=== PATIENT | female | born 1995 | race Caucasian/White ===

== ENCOUNTER 2020-01-23 20:11 | Emergency (ER) | payer MEDICAID, SELFPAY ==
[2020-01-23 20:17] VITALS: BP 139/98; PULSE 110; RESP 18; TEMP 37.3; O2SAT 95; BMI 40.1
--- NOTE | 2020-01-23 20:29 | XRR_ITS ---
PROCEDURE INFORMATION: Exam: XR Chest, 1 View Exam date and time: 01/23/2020 9:20 PM Age: 24 years old Clinical indication: Cough and fever and shortness of breath; Smoker's cough; Additional info: Cough, fever, dyspnea x 1 week TECHNIQUE: Imaging protocol: XR of the chest Views: Frontal portable upright view of the chest. COMPARISON: CR Chest 2 views* [id number] 10/24/2016 8:04 PM FINDINGS: Lungs: The lungs are clear bilaterally. The pulmonary vasculature is normal. Pleural space: No pleural effusion. No pneumothorax. Heart/Mediastinum: The heart is normal in size and contour. Mediastinum: Stable. Bones/joints: Stable. XR/XR chest 1V portable [id number] IMPRESSION: No acute cardiopulmonary abnormality identified.
--- NOTE | 2020-01-23 20:42 | ED_ITS ---
HPI - SOB/Dyspnea General: Chief Complaint: Fever Stated Complaint: covid symptoms Time Seen by Provider: 01/23/20 20:19 History of Present Illness: HPI Narrative: This patient is a 24-year-old female who presents with shortness of breath and fever. Her symptoms have been going on for approximately a week. Today she felt very short of breath and her inhalers that she takes for asthma were not helping her symptoms. She has had low-grade fevers between 99 and 100.2. She has had no known exposures to COVID. She is a ajlc-jy-wivk mom and said she has any been going out to the store. Her works at the [employer] and he goes to work and to the store. She has a 6-month-old at home who has similar symptoms to her self. She also has 2 other children. She has had some diarrhea. She has lost her sense of taste and smell but also notes that she has a lot of sinus congestion. MD elicited complaint: shortness of breath and cough Pertinent past history: asthma Onset (ago): week(s) (1) Timing: constant and progressively worsening Severity: moderate Exacerbating factors: nothing Relieving factors: nothing Associated symptoms: Reports chest congestion, cough, diaphoresis and fever(s); Deny abdominal pain, chest pain, nausea or vomiting Treatment prior to arrival: bronchodilator Review of Systems General: Reports: 10 or more systems reviewed and unremarkable except in HPI and below Const: Reports: fever(s) and diaphoresis Eyes: Denies: change in vision ENMT: Denies: odynophagia Card: Denies: chest pain or swelling of feet/ankles Resp: Reports: chest congestion GI: Reports: diarrhea; Denies: abdominal pain, nausea or vomiting : Denies: flank pain or difficulty voiding Musc: Denies: neck pain or back pain Skin/Breast: Denies: rash Neuro: Denies: headache(s), numbness in extremities or weakness in extremities Juan Luis/Lymph: Denies: easy bruising or easy bleeding [facility] ED PFSH: Medical History (Updated 01/23/20 @ 21:53 by Chapis Boone MD) Asthma Female Reproductive History: Date of last menstrual period: 01/23/20 Physical Exam Const: COMMON NORMALS: no acute distress, patient oriented x3, no limitations and alert GENERAL APPEARANCE: cooperative and comfortable NUTRITIONAL APPEARANCE: obese HENMT: HEAD & SCALP: normal to inspection FACE & SINUS: normal facial exam NOSE: Other nasal findings present (Nasal congestion) Eye: GENERAL EYE: appearance normal, both eyes and all related structures Neck/C-Spine: COMMON NORMALS: supple, no meningeal signs and no JVD Chest: COMMONS NORMALS: normal inspection of the chest Resp: COMMON NORMALS: normal respiratory effort, No use of accessory muscles and clear to auscultation bilaterally AUSCULTATION: clear to auscultation bilaterally, no rales, no rhonchi and no wheezes Cardio: COMMON NORMALS: no JVD, regular rate, regular rhythm and No murmurs present (Cardio) RATE: regular rate RHYTHM: regular rhythm GI: COMMON NORMALS: Normal to inspection, nondistended, normoactive bowel sounds present, Soft to palpation and non-tender INSPECTION: Yes normal to inspection AUSCULTATION: Yes normoactive bowel sounds PALPATION: Yes Soft to palpation Back/Pelvis: COMMON NORMALS: thoracic and lumbar spine normal to inspection Extremity: COMMON NORMALS: normal to inspection Neuro: COMMON NORMALS: patient oriented x3, moves all extremities, no focal motor deficits and no sensory deficits noted SENSORIUM/ORIENTATION: Yes alert MENINGEAL SIGNS: Yes no meningeal signs Psych: COMMON NORMALS: mental status grossly normal, cooperative and normal affect Skin: COMMON NORMALS: no rashes or lesions noted and turgor normal GENERAL SKIN EXAM: no rashes or lesions noted and turgor normal Course ED course: On repeat vital signs patient's heart rate was 92. Pulse ox on room air was 98%. Temperature is 98.6. She is breathing comfortably. There is no wheezing on exam. Chest x-ray is unremarkable. We discussed return precautions, follow-up, self-isolation. She will use [id number] medi cations for her sinus and nasal congestion and other viral symptoms. We discussed monitoring her oxygen with a home pulse ox. Vital Signs: Vital signs: Vital Signs Temperature 98.6 F 01/23/20 21:45 Pulse Rate 92 01/23/20 21:45 Respiratory Rate 16 01/23/20 21:45 Blood Pressure 139/98 01/23/20 21:45 Pulse Oximetry 98 01/23/20 21:45 MDM - SOB/Dyspnea MDM Narrative: Medical decision making narrative: Symptoms could be related to COVID. Shortness of breath, cough, fever. She has had loss of taste and smell but also has sinus congestion. No wheezing on exam. Doubt asthma exacerbation. Outpatient COVID testing, chest x-ray. Discharge Plan Discharge Patient Disposition: Home Clinical Impression: Viral infection, COVID-19 virus test result unknown Condition: Stable Discharge Orders: Discharge Order (Routine); Ordered 01/23/20 Ordered By: Chapis Boone Referrals: Naren Huertas DO [Primary Care Provider] - Discharge Diet: Usual diet Discharge Activity: Resume usual activity Patient Instructions: Upper Respiratory Infection (ED) Activity Restrictions/Additional Instructions: Self quarantine until the results of your COVID test are available. Return to the emergency department if increasing shortness of breath or any other new or concerning symptoms develop. Use [id number] cough and cold medicines for your symptoms. You may also use ibuprofen and Tylenol for symptoms. You will be contacted with the test results when they become available in the next few days. Coding Level of Care Code ED Manager French for Ashkan Ivan Exam Comprehensive
[2020-01-23 21:45] VITALS: BP 139/98; PULSE 92; RESP 16; TEMP 37; O2SAT 98
[2020-01-25 19:31] LABS: Quest SARS-CoV-2 RNA NOT DETECTED (NOT DETECTED)
== END 2020-01-23 22:04 | disposition home or self-care (01) ==
PROVIDERS: Emergency Provider Emergency Medicine; PCP Family Medicine
DX: B34.9 Viral infection, unspecified (principal)
CPT/HCPCS: 12345; 71045; 87635; 99281; 99283

== ENCOUNTER 2021-02-18 15:55 | Emergency (ER) | payer MEDICAID, SELFPAY ==
[2021-02-18 16:16] VITALS: BP 131/90; PULSE 101; RESP 16; TEMP 36.8; O2SAT 98
--- NOTE | 2021-02-18 17:32 | ED_ITS ---
HPI - Back Pain/Injury General: Chief Complaint: Back Pain/Injury Stated Complaint: LOWER BACK AND SPINAL PAIN Time Seen by Provider: 02/18/21 17:32 History of Present Illness: HPI Narrative: 25-year-old female comes in today with complaints of low back pain. Patient appears well. Patient appears no acute distress. Patient reports yesterday patient was lifting a child over a gate and he pulled away from her causing her to aggravate her lower back. Patie nt does report a history of low back pain and discomfort. Patient has been diagnosed with a bulging disc in the lower back. Review of Systems General: Reports: 10 or more systems reviewed and unremarkable except in HPI and below Musc: Reports: back pain [facility] ED PFSH: Medical History (Updated 02/18/21 @ 17:48 by CAPRI Dailey) Asthma Female Reproductive History: Date of last menstrual period: 01/07/21 Physical Exam 2 Const: COMMON NORMALS: no acute distress and patient oriented x3 GENERAL APPEARANCE: cooperative HENMT: COMMON NORMALS: normocephalic and Normal external nose present HEAD & SCALP: normal to inspection and normocephalic NOSE: Normal external nose present MOUTH: Normal oral and palatal mucosa present Eye: GENERAL EYE: appearance normal, both eyes and all related structures Neck/C-Spine: COMMON NORMALS: full ROM Chest: COMMONS NORMALS: normal inspection of the chest Resp: COMMON NORMALS: normal respiratory effort EFFORT & INSPECTION: Yes able to speak in complete sentences Cardio: COMMON NORMALS: regular rate and regular rhythm RATE: regular rate RHYTHM: regular rhythm GI: COMMON NORMALS: non-tender : COMMON NORMALS: Yes no CVA tenderness BLADDER/KIDNEY EXAM: Yes no CVA tenderness Back/Pelvis: COMMON NORMALS: no CVA tenderness THORACIC SPINE/UPPER BACK: No thoracic spinal tenderness LUMBAR SPINE/LOWER BACK: Yes lumbar spinal tenderness Lumbar spinal tenderness location: L4 and L5 and Yes paraspinal muscle tenderness Lumbar paraspinal muscle tenderness: left left lumbar paraspinal muscle tenderness: L3, L4 and L5 Extremity: COMMON NORMALS: normal to inspection Neuro: COMMON NORMALS: patient oriented x3 and moves all extremities Psych: COMMON NORMALS: mental status grossly normal and cooperative Skin: COMMON NORMALS: no rashes or lesions noted GENERAL SKIN EXAM: no rashes or lesions noted Course Vital Signs: Vital signs: Vital Signs Temperature 98.2 F 02/18/21 16:16 Pulse Rate 101 H 02/18/21 16:16 Respiratory Rate 16 02/18/21 16:16 Blood Pressure 131/90 02/18/21 16:16 Pulse Oximetry 98 02/18/21 16:16 MDM - Back Pain/Injury MDM Narrative: Medical decision making narrative: 25-year-old female comes in for low back pain. On exam patient has muscle tenderness to the left lower back paraspinous muscles. Patient also has some tenderness in the L4-L5 area of the lumbar spine. Patient denies any problems with urination or bowel movements. Patient vital signs were normal. Differential diagnosis includes but not limited to intervertebral disc disease, lumbar strain, facet arthropathy. No sign of cauda equina syndrome was noted. Reviewed exam with patient recommended treatment for lumbar strain. Patient reported understanding and agreed to plan with need for follow-up with primary care. Discharge Plan Discharge Patient Disposition: Home Clinical Impression: Strain of lumbar region Qualifiers: Encounter type: initial encounter Qualified Code(s): S39.012A - Strain of m uscle, fascia and tendon of lower back, initial encounter Condition: Stable Prescriptions: New hydrocodone-acetaminophen 5-325 mg tablet 1 tab PO Q6H PRN (Reason: pain (scale score 7-10)) Qty: 6 RF: 0 Discharge Orders: Discharge ED (Routine); Ordered 02/18/21 Ordered By: Wolfgang Mc Referrals: Naren Huertas DO [Primary Care Provider] - Discharge Diet: Usual diet Discharge Activity: Increase activity as tolerated Patient Instructions: Low Back Strain (ED), Opioid Safety Activity Restrictions/Additional Instructions: Activity as tolerated. Use acetaminophen and ibuprofen for control of pain. Use ice and heat for further pain control. Drink plenty of water. Use hydrocodone for severe pain or breakthrough pain. Try to maintain activity as much as possible. Leisurely walking will help with the pain and discomfort. Follow-up with primary care for further instruction. Return to the ER for new concerns. Coding Level of Care Code ED Partnership Marketing Manager for Ashkan Ivan
[2021-02-18 18:02] VITALS: BP 115/83; PULSE 88; RESP 18; O2SAT 95
== END 2021-02-18 18:12 | disposition home or self-care (01) ==
PROVIDERS: Emergency Provider Nurse Practitioner Family; PCP Family Medicine
DX: S39.012A Strain of muscle, fascia and tendon of lower back, initial encounter (principal); X50.0XXA Overexertion from strenuous movement or load, initial encounter
CPT/HCPCS: 99282

== ENCOUNTER 2021-06-15 12:07 | Emergency (ER) | payer MEDICAID, SELFPAY ==
[2021-06-15 12:22] VITALS: BP 166/105; PULSE 90; RESP 16; TEMP 36.7; O2SAT 98
--- NOTE | 2021-06-15 12:55 | W.ED.ABDPA2 ---
HPI - Abdominal Pain General: Chief Complaint: Abdominal Pain Stated Complaint: Abd pains, bloodclotts in diarrhea Time Seen by Provider: 06/15/21 12:46 Source: patient Mode of arrival: ambulatory Limitations: no limitations History of Present Illness: HPI narrative: Abdominal cramping and bloody diarrhea this morning. Past surgical history includes C-sections x2, appendectomy, cholecystectomy. Possible history includes anxiety and chronic low back pain. Patient is on Lexapro, meloxicam, Flexeril. Patient was started on control pills 1 week ago. She is allergic to cephalexin. MD elicited complaint: abdominal pain Pertinent past history: gastrointestinal bleeding Onset (ago): day(s) (1) Pain Consistency: intermittent Location: Diffuse Severity: mild Quality: cramping Radiation: none Migration to: no migration Relieving factors: nothing Context: other (Patient denies any food poisoning, contaminated water or sick contacts.) Associated Symptoms: Reports GI cramping, diarrhea and hematochezia; Denies chills, dysuria, fever(s), hematemesis, melena, nausea, poor appetite, syncope and vomiting Treatments prior to arrival: NSAIDs Related Data: Date of Last Menstrual Period: 01/07/21 Patient : No Review of Systems Const: Denies: fever(s) or chills Eyes: Denies: change in vision ENMT: Denies: throat pain Card: Denies: syncope Resp: Denies: dyspnea or wheezing GI: Reports: diarrhea, GI cramping and hematochezia; Denies: nausea, vomiting, hematemesis or melena : Denies: dysuria Musc: Denies: neck pain or back pain Skin/Breast: Denies: rash or pruritus Neuro: Denies: headache(s) or numbness in extremities Psych: Denies: anxiety Juan Luis/Lymph: Denies: enlarged lymph nodes PFSH ED PFSH: Medical History Asthma Female Reproductive History: Date of last menstrual period: 01/07/21 Physical Exam Const: COMMON NORMALS: no acute distress, patient oriented x3, no limitations and well nourished EXAM LIMITATIONS: no altered mental status GENERAL APPEARANCE: cooperative NUTRITIONAL APPEARANCE: obese HENMT: COMMON NORMALS: normocephalic and atraumatic HEAD & SCALP: normocephalic and atraumatic FACE & SINUS: normal facial exam Eye: COMMON NORMALS: EOMs intact bilaterally, conjunctivae normal and no scleral icterus CONJUNCTIVA: Yes conjunctivae normal Neck/C-Spine: COMMON NORMALS: full ROM, no lymphadenopathy, supple and no meningeal signs GENERAL: Yes normal visual inspection Lymph: LYMPHATIC: no lymphadenopathy noted Chest: COMMONS NORMALS: normal inspection of the chest and normal palpation of entire chest wall CHEST: No Ecchymosis present and No rash Resp: COMMON NORMALS: normal respiratory effort, No retractions and clear to auscultation bilaterally EFFORT & INSPECTION: No respiratory distress AUSCULTATION: clear to auscultation bilaterally Cardio: COMMON NORMALS: regular rate, regular rhythm and Peripheral pulses 2+ throughout JUGULAR VENOUS DISTENTION: no JVD RATE: regular rate RHYTHM: regular rhythm PERIPHERAL PULSES: Peripheral pulses 2+ throughout GI: COMMON NORMALS: Normal to inspection, nondistended, normoactive bowel sounds present, Soft to palpation and No hepatosplenomegaly present AUSCULTATION: Yes normoactive bowel sounds PALPATION: Yes Soft to palpation, Yes Tenderness to palpation present (GI) (Mild generalized abdominal pain) and Yes No hepatosplenomegaly present OTHER: No guarding or rebound. Patient denies history of hemorrhoids. : COMMON NORMALS: Yes no CVA tenderness BLADDER/KIDNEY EXAM: Yes no CVA tenderness Back/Pelvis: COMMON NORMALS: no CVA tenderness Extremity: COMMON NORMALS: normal to inspection, full ROM and capillary refill normal Neuro: COMMON NORMALS: patient oriented x3, CN's II-XII intact bilaterally, no focal motor deficits and no sensory deficits noted MENINGEAL SIGNS: Yes no meningeal signs Psych: COMMON NORMALS: mental status grossly normal and Normal thought process present THOUGHT PROCESS: Normal thought process present Skin: COMMON NORMALS: no rashes or lesions noted and no wounds GENERAL SKIN EXAM: no rashes or lesions noted Course Vital Signs: Vital signs: Vital Signs Temperature 98.1 F 06/15/21 12:22 Pulse Rate 83 06/15/21 14:31 Respiratory Rate 14 06/15/21 14:31 Blood Pressure 147/97 06/15/21 13:01 Pulse Oximetry 98 06/15/21 14:31 MDM - Abdominal Pain MDM Narrative: Medical decision making narrative: 1432: Patient okay with proceeding with CT scan of the abdomen. 1450: Patient changed her mind and declined CT scan of the abdomen. She wants to go home at this point. [facility]. I did encourage patient follow-up with her primary care doctor for endoscopy to look at her colon. Differential Diagnosis: Differential diagnosis abdominal pain: Likely abdominal pain (Colitis) Medical Records: Attestation: I reviewed the patient's medical records. Lab Data: Labs: Lab Results 06/15/21 06/15/21 06/15/21 13:05 13:05 13:42 WBC 9.2 10^3/uL 10^3/ uL (4.0-10.0) RBC 5.52 10^6/uL H 10 ^6/uL (4.1-5.3) Hgb 15.0 g/dL g/dL (11.5-15.3) Hct 46.5 % % (37.0-47.0) MCV 84.2 fl fl (81-99) MCH 27.2 pg L pg (28.0-34.0) MCHC 32.3 g/dL g/dL (30.0-36.0) RDW 14.0 % % (12.1-15.1) Plt Count 341 10^3/cmm 10^3 /cmm (130-400) MPV 10.1 fL fL (7.4-10.4) Neut % (Auto) 62.4 % % Lymph % (Auto) 27.8 % % Preble % (Auto) 6.0 % % Eos % (Auto) 2.7 % % Baso % (Auto) 0.9 % % Neut # (Auto) 5.71 10^3/uL 10^3 /uL (1.8-7.7) Lymph # (Auto) 2.6 10^3/uL 10^3/ uL (0.8-4.8) Preble # (Auto) 0.6 10^3/uL 10^3/ uL (0.2-0.9) Eos # (Auto) 0.3 10^3/uL 10^3/ uL (0.0-0.8) Baso # (Auto) 0.1 10^3/uL 10^3/ uL (0.0-0.1) Nucleated RBC % (a uto) 0 % % Nucleated RBCs # 0.0 /100WBC /100W BC Sodium 139 mmol/L mmol/L (136-145) Potassium 4.3 mmol/L mmol/L (3.5-5.1) Chloride 103 mmol/L mmol/L (98-107) Carbon Dioxide 25 mmol/L mmol/L (22-29) Anion Gap 15.3 (5-19) BUN 7 mg/dL mg/dL (6-20) Creatinine 0.7 mg/dL mg/dL (0.5-0.9) GFR Calculation 100.4 mL/min mL/m in (90-130) Glucose 97 mg/dL mg/dL (65-115) Calculated Osmolal ity 286 mOsm/kg mOsm/ kg (285-295) Calcium 9.0 mg/dL mg/dL (8.5-10.5) Total Bilirubin 0.2 mg/dL mg/dL (0.15-1.2) AST 24 U/L U/L (0-32) ALT 47 U/L H U/L (0-33) Alkaline Phosphata se 129 IU/L H IU/L (35-105) Total Protein 6.9 g/dL g/dL (6.6-8.7) Albumin 4.0 g/dL g/dL (3.5-5.2) Globulin 2.9 g/dL g/dL (1.3-4.6) Urine Color Urine Appearance Urine pH Ur Specific Gravit y Urine Protein Urine Glucose (UA) Urine Ketones Urine Blood Urine Nitrate Urine Bilirubin Urine Urobilinogen Ur Leukocyte Michelle ase Urine RBC Urine WBC Ur Squamous Epith Cells Amorphous Sediment Urine Bacteria Urine HCG, Qual Negative (Negative) 06/15/21 13:42 WBC RBC Hgb Hct MCV MCH MCHC RDW Plt Count MPV Neut % (Auto) Lymph % (Auto) Preble % (Auto) Eos % (Auto) Baso % (Auto) Neut # (Auto) Lymph # (Auto) Preble # (Auto) Eos # (Auto) Baso # (Auto) Nucleated RBC % (a uto) Nucleated RBCs # Sodium Potassium Chloride Carbon Dioxide Anion Gap BUN Creatinine GFR Calculation Glucose Calculated Osmolal ity Calcium Total Bilirubin AST ALT Alkaline Phosphata se Total Protein Albumin Globulin Urine Color Yellow (Yellow) Urine Appearance Hazy A (CLEAR) Urine pH 7 (5-7) Ur Specific Gravit y 1.015 (1.005-1.030) Urine Protein Neg (Negative) Urine Glucose (UA) Norm (Normal) Urine Ketones Negative (Negative) Urine Blood 3+ H (Negative) Urine Nitrate Negative (Negative) Urine Bilirubin Neg (Negative) Urine Urobilinogen Norm mg/dL mg/dL (Negative) Ur Leukocyte Mcihelle ase Negative (Negative) Urine RBC >100 /hpf H /hpf (0-2) Urine WBC 0-4 /hpf H /hpf (0-5) Ur Squamous Epith Cells 5-10 /hpf H /hpf (0-5) Amorphous Sediment Not Reportable Urine Bacteria 1+ /hpf H /hpf (NONE) Urine HCG, Qual stool for occult blood negative. [facility] [address] [place] [id number], [employer] C[employer] NAME: Abundio Nassar LOC: ER U #: [id number] AGE/SX: 25/F ROOM: RE06/15/[address]: Robbi Ríos MD : 1995 BED: DIS: FAX #: STATUS: REG ER TLOC: Spec #: [id number] Sanjuana: 06/15/21 Status: RES Req #: [id number] Recd: 06/15/[address]: Robbi Ríos MD Src: Stool SpDesc: Ordered: Lactoferrin, E. Bact Pnl, E. Parasite, C.DIFF PCR, IFOB Procedure Result Verified Site Lactoferrin Final 06/15/21 Lactoferrin Negative: No fecal lactoferrin detected. Enteric Bacterial Panel by PCR PENDING Enteric Parasite Panel by PCR PENDING Clostridioides Difficile PCR PENDING Immunochemical Fecal OCB Final 06/15/21 IFOB Results: Negative for Occult Blood [facility] [address] [place] [id number], [employer] NAME: Abundio Nassar LOC: ER U #: [id number] AGE/SX: 25/F ROOM: RE06/15/[address]: Robbi Ríos MD : 1995 BED: DIS: FAX #: STATUS: REG ER TLOC: Spec #: [id number] Sanjuana: 06/15/21 Status: RES Req #: [id number] Recd: 06/15/[address]: Robbi Ríos MD Src: Stool SpDesc: Ordered: Lactoferrin, E. Bact Pnl, E. Parasite, C.DIFF PCR, IFOB Procedure Result Verified Site Lactoferrin Final 06/15/21 Lactoferrin Negative: No fecal lactoferrin detected. Enteric Bacterial Panel by PCR PENDING Enteric Parasite Panel by PCR PENDING Clostridioides Difficile PCR PENDING Immunochemical Fecal OCB Final 06/15/21 IFOB Results: Negative for Occult Blood Discharge Plan Discharge Prescriptions: No Action hydrocodone-acetaminophen 5-325 mg tablet 1 tab PO Q6H PRN (Reason: pain (scale score 7-10)) Qty: 6 RF: 0 Coding Level of Care Code ED Scorer Helper for Chg Fwd Exam Comprehensive
[2021-06-15 13:01] VITALS: BP 147/97; PULSE 90; RESP 16; O2SAT 98
[2021-06-15 13:11] LABS: Basophils # 0.1 10^3/uL (0.0-0.1); Basophils % 0.9 %; Eosinophils # 0.3 10^3/uL (0.0-0.8); Eosinophils % 2.7 %; Hematocrit 46.5 % (37.0-47.0); Lymphocytes # 2.6 10^3/uL (0.8-4.8); Lymphocytes % 27.8 %; Mean Corpuscular HGB Conc 32.3 g/dL (30.0-36.0); Mean Corpuscular Hemoglobin 27.2 pg (28.0-34.0); Mean Corpuscular Volume 84.2 fl (81-99); Mean Platelet Volume 10.1 fL (7.4-10.4); Monocytes # 0.6 10^3/uL (0.2-0.9); Neutrophils # 5.71 10^3/uL (1.8-7.7); Neutrophils % 62.4 %; Nucleated Red Blood Cells % 0 %; Platelet Count 341 10^3/cmm (130-400); Red Blood Count 5.52 10^6/uL (4.1-5.3); White Blood Count 9.2 10^3/uL (4.0-10.0)
[2021-06-15 13:27] LABS: Alanine Aminotransferase 47 U/L (0-33); Alkaline Phosphatase 129 IU/L (35-105); Anion Gap 15.3 (5-19); Aspartate Amino Transferase 24 U/L (0-32); Blood Urea Nitrogen 7 mg/dL (6-20); Carbon Dioxide 25 mmol/L (22-29); Chloride 103 mmol/L (98-107); Globulin 2.9 g/dL (1.3-4.6); Glomerular Filtration Rate 100.4 mL/min (90-130); Glucose 97 mg/dL (65-115); Osmolality Calculated 286 mOsm/kg (285-295); Potassium 4.3 mmol/L (3.5-5.1); Sodium 139 mmol/L (136-145); Total Bilirubin 0.2 mg/dL (0.15-1.2); Total Protein 6.9 g/dL (6.6-8.7)
[2021-06-15 14:09] LABS: Specific Gravity, Urine 1.015 (1.005-1.030); Urine Appearance Hazy (CLEAR); Urine Color Yellow (Yellow); pH Urine 7 (5-7)
[2021-06-15 14:10] LABS: Blood Urine 3+ (Negative); Glucose Urine UA Norm (Normal); Ketones Urine Negative (Negative); Protein Urine Neg (Negative)
[2021-06-15 14:11] LABS: Add Urine Culture? Yes; Bacteria Urine 1+ /hpf; Bilirubin Urine Neg (Negative); Leukocyte Esterase Urine Negative (Negative); Nitrate Urine Negative (Negative); RBC Urine >100 /hpf (0-2); Urobilinogen Urine Norm (Negative); WBC Urine 0-4 /hpf (0-5)
[2021-06-15 14:31] VITALS: PULSE 83; RESP 14; O2SAT 98
[2021-06-15 15:06] VITALS: PULSE 85; O2SAT 96
[2021-06-15 15:19] VITALS: BP 124/84; PULSE 89; RESP 14; O2SAT 98
== END 2021-06-15 15:21 | disposition home or self-care (01) ==
PROVIDERS: Nurse Practitioner Family; Emergency Provider Family Medicine; PCP Family Medicine
DX: R10.9 Unspecified abdominal pain (principal); R19.7 Diarrhea, unspecified
CPT/HCPCS: 80053; 81001; 81025; 82274; 83630; 85025; 87086; 87493; 87506; 99283

== ENCOUNTER 2021-09-11 14:52 | Emergency (ER) | payer MEDICAID, SELFPAY ==
[2021-09-11 15:07] VITALS: BP 137/97; PULSE 84; RESP 18; TEMP 36.6; O2SAT 98; BMI 39.4
--- NOTE | 2021-09-11 15:20 | PC.NURSE ---
DR. ARIZA REVIEWED THE EKG THAT WAS TAKEN IN TRIAGE AT 1513.
--- NOTE | 2021-09-11 15:42 | XR_ITS ---
WS: [id number] Portable AP upright chest, 09/11/2021 Clinical Data: sob Comparison: Portable chest, 01/23/2020. Findings: No nodules, masses or effusions are seen. The heart is normal. The pulmonary vascularity is not increased. No pneumonia or pneumothorax is seen. XR/XR chest 1V portable [id number] Impression: Negative chest.
--- NOTE | 2021-09-11 17:07 | W.ED.ASTHMA ---
HPI - Asthma General: Chief Complaint: Asthma Stated Complaint: asthma Time Seen by Provider: 09/11/21 17:03 Source: patient Mode of arrival: ambulatory Limitations: no limitations History of Present Illness: 26-year-old female comes in complaining of wheezing and congestion. She has a history of asthma she is exposed to some pet allergens and at home she was in seem to precipitate it. She is not had any fever sweats or chills she does have an albuterol inhaler she uses as needed she used it twice today. She feels a little bit better now than she did a few days ago. complaint: asthma attack and shortness of breath Onset (ago): minute(s) Severity: severe Associated symptoms: Reports non-productive cough; Deny chest pain, fever(s), hemoptysis, leg edema, productive cough or syncope Asthma History: childhood onset Treatments Prior to Arrival: inhaled bronchodilator Related Data: Current Asthma Therapy: inhaled bronchodilator Review of Systems Const: Denies: fever(s) ENMT: Denies: throat pain, ear or mastoid pain, nasal discharge or nasal congestion Card: Denies: chest pain or syncope Resp: Reports: dyspnea, non-productive cough and wheezing; Denies: productive cough or hemoptysis GI: Denies: abdominal pain, nausea, vomiting, hematemesis, coffee ground emesis, diarrhea, constipation, bloating, hematochezia or melena : Denies: flank pain, difficulty voiding, dysuria, urinary frequency or urinary urgency Skin/Breast: Denies: rash or pruritus PFSH ED PFSH: Medical History Asthma Social History (Updated 09/12/21 @ 09:38 by Speedy Handley DO) Smoking and tobacco status: never smoked Female Reproductive History: Date of last menstrual period: 08/24/21 Physical Exam Const: COMMON NORMALS: no acute distress GENERAL APPEARANCE: cooperative and comfortable ORIENTATION/CONSCIOUSNESS: Yes awake, Yes oriented to person, Yes oriented to place and Yes oriented to time HENMT: COMMON NORMALS: normocephalic, atraumatic and hearing grossly normal bilaterally HEAD & SCALP: normocephalic and atraumatic Resp: COMMON NORMALS: normal respiratory effort, No retractions, No use of accessory muscles and clear to auscultation bilaterally AUSCULTATION: clear to auscultation bilaterally and no wheezes Cardio: COMMON NORMALS: regular rate, regular rhythm and No murmurs present (Cardio) RATE: regular rate RHYTHM: regular rhythm GI: COMMON NORMALS: Soft to palpation and No hepatosplenomegaly present AUSCULTATION: Yes normoactive bowel sounds PALPATION: Yes Soft to palpation, No Tenderness to palpation present (GI), No Guarding due to palpation present (GI) and Yes No hepatosplenomegaly present Extremity: COMMON NORMALS: normal to inspection, capillary refill normal, no clubbing, cyanosis or edema, no calf tenderness and no pedal edema Neuro: SENSORIUM/ORIENTATION: Yes oriented to person, Yes oriented to place and Yes oriented to time Skin: COMMON NORMALS: no rashes or lesions noted GENERAL SKIN EXAM: no rashes or lesions noted Course Vital Signs: Vital signs: Vital Signs Temperature 97.9 F 09/11/21 15:07 Pulse Rate 84 09/11/21 15:07 Respiratory Rate 18 09/11/21 15:07 Blood Pressure 137/97 09/11/21 15:07 Pulse Oximetry 98 09/11/21 15:07 MDM - Asthma Medical Decision Making Mild acute asthma attack. She not having much for wheezing now. We will go and put her out of steroid taper encourage regular use of albuterol start Singulair follow-up with primary care physician to see if she needs more aggressive treatment such as inhaled corticosteroid or long-acting beta agonist. And signing of the chart for some reason in the chart will not allow the EMR disposition to be documented as discharged home. Patient was discharged home. Medical Records I reviewed the patient's medical records. Lab Data I reviewed the patient's lab results. Radiology Impressions Chest X-Ray 09/11/21 15:42 Impression: Negative chest. Discharge Plan Discharge Patient Disposition: Home Clinical Impression: Asthma with acute exacerbation Condition: Stable Prescriptions: New prednisone 20 mg tablet 20 mg PO TID Qty: 15 0RF Rx Instructions: 1 p.o. 3 times daily x3 days, 1 p.o. twice daily x2 days, 1 p.o. daily albuterol sulfate 90 mcg/actuation HFA aerosol inhaler 2 inh inhalation Q4H PRN (Reason: shortness of breath or wheezing) Qty: 18 0RF Singulair 10 mg tablet 10 mg PO DAILY Qty: 60 0RF No Action hydrocodone-acetaminophen 5-325 mg tablet 1 tab PO Q6H PRN (Reason: pain (scale score 7-10)) Qty: 6 0RF Cipro 500 mg tablet 500 mg PO BID Qty: 14 0RF dicyclomine 20 mg tablet 20 mg PO QID Qty: 15 1RF Rx Instructions: As needed for abdominal pain Discharge Orders: Discharge ED (Routine); Ordered 09/11/21 Ordered By: Speedy Handley Referrals: Amarjit Duncan MD [Primary Care Provider] - Discharge Diet: Usual diet Discharge Activity: Increase activity as tolerated Patient Instructions: Opioid Safety Activity Restrictions/Additional Instructions: If not improving in the next 3 to 5 days follow-up with your primary care doctor Coding Level of Care Code ED Shift Supervisor for Ashkan Ivan
== END 2021-09-11 17:42 | disposition home or self-care (01) ==
PROVIDERS: Emergency Provider Family Medicine; PCP Family Medicine
DX: J45.901 Unspecified asthma with (acute) exacerbation (principal); Z79.891 Long term (current) use of opiate analgesic
CPT/HCPCS: 71045; 99282

== ENCOUNTER 2021-10-07 14:44 | Emergency (ER) | payer MEDICAID, SELFPAY ==
[2021-10-07 15:15] VITALS: BP 125/67; PULSE 97; RESP 14; TEMP 36.7; O2SAT 98; BMI 42.9
[2021-10-07 15:21] VITALS: BP 108/74; PULSE 90; RESP 18; TEMP 36.8; O2SAT 97
--- NOTE | 2021-10-07 15:26 | ED_ITS ---
HPI - Female Genitourinary General: Chief complaint: Vaginal Bleeding Stated complaint: Abnormal bleeding, lower right back/shoulder pain Time Seen by Provider: 10/07/21 15:26 Source: patient Mode of arrival: ambulatory Limitations: no limitations History of Present Illness: 26-year-old female comes in complaining of abnormal vaginal bleeding. She also has some mild back pain. States she had a period 2 weeks ago and then started having her period again yesterday moderate bleeding. She does not believe she is she denies any dysuria urgency or frequency no fever sweats or chills MD elicited complaint: vaginal bleeding Onset (ago): hour(s) Severity: mild Quality of pain: sharp (Back pain) Consistency: constant Vaginal bleeding: moderate Exacerbating factors: movement (Back pain) Relieving factors: none Associated symptoms: Reports vaginal bleeding; Deny abdominal pain, short of breath, fevers/chills, headache(s), nausea, rash, seizures, syncope, vaginal discharge or weakness Treatment prior to arrival: none Patient : No Date of Last Menstrual Period: 08/24/21 Review of Systems Const: Denies: fever(s), chills, body aches, change in appetite, fatigue or malaise ENMT: Denies: throat pain, ear or mastoid pain, nasal discharge or nasal congestion Card: Denies: chest pain or syncope Resp: Denies: dyspnea, productive cough or non-productive cough GI: Denies: abdominal pain, nausea or vomiting : Reports: flank pain; Denies: difficulty voiding, dysuria, urinary frequency, urinary urgency or vaginal discharge Musc: Reports: back pain Skin/Breast: Denies: rash or pruritus Neuro: Denies: headache(s) PFSH ED PFSH: Medical History Asthma Social History Smoking and tobacco status: never smoked Female Reproductive History: Date of last menstrual period: 08/24/21 Physical Exam Const: COMMON NORMALS: no acute distress GENERAL APPEARANCE: cooperative and comfortable ORIENTATION/CONSCIOUSNESS: Yes awake, Yes oriented to person, Yes oriented to place and Yes oriented to time HENMT: COMMON NORMALS: normocephalic, atraumatic and hearing grossly normal bilaterally HEAD & SCALP: normocephalic and atraumatic Neck/C-Spine: COMMON NORMALS: no JVD Resp: COMMON NORMALS: normal respiratory effort, No retractions, No use of accessory muscles and clear to auscultation bilaterally AUSCULTATION: clear to auscultation bilaterally Cardio: COMMON NORMALS: no JVD, regular rate, regular rhythm and No murmurs present (Cardio) RATE: regular rate RHYTHM: regular rhythm GI: COMMON NORMALS: Soft to palpation and No hepatosplenomegaly present AUSCULTATION: Yes normoactive bowel sounds PALPATION: Yes Soft to palpation, No Tenderness to palpation present (GI), No Guarding due to palpation present (GI) and Yes No hepatosplenomegaly present : COMMON NORMALS: No no CVA tenderness BLADDER/KIDNEY EXAM: No no CVA tenderness EXTERNAL FEMALE EXAM: Yes normal appearance of the urethra SPECULUM EXAM - VAGINA: Yes vaginal bleeding SPECULUM EXAM - CERVIX: Yes Cervical os closed, No Tissue present in the cervical os, Yes Cervical bleeding (Minimal), No Abnormal cervical discharge present and No Cervical lesion present BIMANUAL EXAM - VAGINA & UTERUS: Yes normal palpation and No cervical motion tenderness OB/EXTERNAL & SPECULUM: vaginal bleeding Back/Pelvis: COMMON NORMALS: negative for no CVA tenderness Extremity: COMMON NORMALS: normal to inspection, capillary refill normal, no clubbing, cyanosis or edema, no calf tenderness and no pedal edema Neuro: SENSORIUM/ORIENTATION: Yes oriented to person, Yes oriented to place and Yes oriented to time Skin: COMMON NORMALS: no rashes or lesions noted GENERAL SKIN EXAM: no rashes or lesions noted Course Vital Signs: Vital signs: Vital Signs Temperature 98.3 F 10/07/21 17:32 Pulse Rate 68 10/07/21 17:32 Respiratory Rate 18 10/07/21 17:32 Blood Pressure 110/79 10/07/21 17:32 Pulse Oximetry 96 10/07/21 17:32 MDM - Female Medical Decision Making GC chlamydia wet mount done results pending. Discharge home Motrin or Aleve as needed [id number] if bleeding persist follow-up with primary care. Medical Records I reviewed the patient's medical records. Lab Data I reviewed the patient's lab results. : 10/07/21 15:30 10/07/21 15:30 Laboratory Results WBC 11.1 10^3/uL (4.0-10.0) H 10/07/21 15:30 RBC 5.62 10^6/uL (4.1-5.3) H 10/07/21 15:30 Hgb 15.8 g/dL (11.5-15.3) H 10/07/21 15:30 Hct 47.5 % (37.0-47.0) H 10/07/21 15:30 MCV 84.5 fl (81-99) 10/07/21 15:30 MCH 28.1 pg (28.0-34.0) 10/07/21 15: MCHC 33.3 g/dL (30.0-36.0) 10/07/21 15: RDW 14.1 % (12.1-15.1) 10/07/21 15: Plt Count 385 10^3/cmm (130-400) 10/07/21 15: MPV 10.4 fL (7.4-10.4) 10/07/21 15:30 Neut % (Auto) 57.6 % 10/07/21 15:30 Lymph % (Auto) 31.8 % 10/07/21 15:30 Elliott % (Auto) 6.7 % 10/07/21 15:30 Eos % (Auto) 3.0 % 10/07/21:30 Baso % (Auto) 0.6 % 10/07/21:30 Neut # (Auto) 6.37 10^3/uL (1.8-7.7) 10/07/21 15:30 Lymph # (Auto) 3.5 10^3/uL (0.8-4.8) 10/07/21 15:30 Elliott # (Auto) 0.7 10^3/uL (0.2-0.9) 10/07/21 15:30 Eos # (Auto) 0.3 10^3/uL (0.0-0.8) 10/07/21 15:30 Baso # (Auto) 0.1 10^3/uL (0.0-0.1) 10/07/21 15:30 Nucleated RBC % (auto) 0 % 10/07/21 15: Nucleated RBCs # 0.0 /100WBC 10/07/21 15:30 Sodium 137 mmol/L (136-145) 10/07/21 15:30 Potassium 4.0 mmol/L (3.5-5.1) 10/07/21 15:30 Chloride 100 mmol/L (98-107) 10/07/21 15:30 Carbon Dioxide 25 mmol/L (22-29) 10/07/21 15:30 Anion Gap 16.0 (5-19) 10/07/21 15:30 BUN 10 mg/dL (6-20) 10/07/21 15:30 Creatinine 0.7 mg/dL (0.5-0.9) 10/07/21 15:30 GFR Calculation 99.6 mL/min (90-130) 10/07/21 15: Glucose 131 mg/dL (65-115) H 10/07/21 15: Calculated Osmolality 285 mOsm/kg (285-295) 10/07/21 15: Calcium 10.0 mg/dL (8.5-10.5) 10/07/21 15: Total Bilirubin 0.2 mg/dL (0.15-1.2) 10/07/21 15:30 AST 20 U/L (0-32) 10/07/21 15:30 ALT 38 U/L (0-33) H 10/07/21 15:30 Alkaline Phosphatase 102 IU/L (35-105) 10/07/21 15:30 Total Protein 7.3 g/dL (6.6-8.7) 10/07/21 15: Albumin 4.5 g/dL (3.5-5.2) 10/07/21 15: Globulin 2.8 g/dL (1.3-4.6) 10/07/21 15:30 HCG, Qual Negative (Negative) 10/07/21 15:55 Urine Color Yellow (Yellow) 10/07/21 15: Urine Appearance Clear (CLEAR) 10/07/21: Urine pH 5 (5-7) 10/07/21: Ur Specific [place] 1.015 (1.005-1.030) 10/07/21 15: Urine Protein Neg (Negative) 10/07/21: Urine Glucose (UA) Norm (Normal) 10/07/21: Urine Ketones Negative (Negative) 10/07/21 15:25 Urine Blood Neg (Negative) 10/07/21 15:25 Urine Nitrate Negative (Negative) 10/07/21 15:25 Urine Bilirubin Neg (Negative) 10/07/21 15:25 Urine Urobilinogen Norm mg/dL (Negative) 10/07/21 15:25 Ur Leukocyte Esterase Negative (Negative) 10/07/21 15:25 Discharge Plan Discharge Patient Disposition: Home Clinical Impression: Dysfunctional uterine bleeding Condition: Stable Prescriptions: No Action VyLibra 0.25-35 mg-mcg tablet 1 tab PO DAILY 0RF Tylenol 325 mg Tablet 650 mg PO Q6H PRN (Reason: Pain) 0RF Aleve 220 mg Tablet 220 mg PO Q12H PRN (Reason: Pain) 0RF ibuprofen 200 mg Tablet 600 mg PO Q6H PRN (Reason: Pain) 0RF escitalopram oxalate 5 mg tablet 5 mg PO QAM 0RF albuterol sulfate 90 mcg/actuation HFA aerosol inhaler 2 inh inhalation Q4H PRN (Reason: shortness of breath or wheezing) Qty: 18 0RF Discharge Orders: Discharge ED (Routine); Ordered 10/07/21 Ordered By: Speedy Handley Referrals: Amarjit Duncan MD [Primary Care Provider] - Discharge Diet: Usual diet Discharge Activity: Resume usual activity Patient Instructions: Opioid Safety Activity Restrictions/Additional Instructions: If symptoms persist follow-up with your primary care physician. Results of cultures done today will be called to you if positive. Coding Level of Care Code ED Tourism Radio Presenter for Ashkan Ivan
[2021-10-07 15:46] LABS: Add Urine Microscopic? NO; Charge for UA Resulting for Rev
[2021-10-07 15:51] LABS: Basophils # 0.1 10^3/uL (0.0-0.1); Basophils % 0.6 %; Eosinophils # 0.3 10^3/uL (0.0-0.8); Hematocrit 47.5 % (37.0-47.0); Hemoglobin 15.8 g/dL (11.5-15.3); Lymphocytes # 3.5 10^3/uL (0.8-4.8); Lymphocytes % 31.8 %; Mean Corpuscular HGB Conc 33.3 g/dL (30.0-36.0); Mean Corpuscular Hemoglobin 28.1 pg (28.0-34.0); Mean Corpuscular Volume 84.5 fl (81-99); Mean Platelet Volume 10.4 fL (7.4-10.4); Monocytes # 0.7 10^3/uL (0.2-0.9); Monocytes % 6.7 %; Neutrophils # 6.37 10^3/uL (1.8-7.7); Neutrophils % 57.6 %; Nucleated Red Blood Cells % 0 %; Platelet Count 385 10^3/cmm (130-400); Red Blood Count 5.62 10^6/uL (4.1-5.3); Red Cell Distribution Width 14.1 % (12.1-15.1); White Blood Count 11.1 10^3/uL (4.0-10.0)
[2021-10-07 16:01] LABS: Glucose Urine UA Norm (Normal); Protein Urine Neg (Negative); Specific Gravity, Urine 1.015 (1.005-1.030); Urine Appearance Clear (CLEAR); Urine Color Yellow (Yellow); pH Urine 5 (5-7)
[2021-10-07 16:02] LABS: Bilirubin Urine Neg (Negative); Blood Urine Neg (Negative); Ketones Urine Negative (Negative); Leukocyte Esterase Urine Negative (Negative); Nitrate Urine Negative (Negative); Urobilinogen Urine Norm (Negative)
[2021-10-07 16:07] LABS: Alanine Aminotransferase 38 U/L (0-33); Albumin Level 4.5 g/dL (3.5-5.2); Alkaline Phosphatase 102 IU/L (35-105); Aspartate Amino Transferase 20 U/L (0-32); Blood Urea Nitrogen 10 mg/dL (6-20); Carbon Dioxide 25 mmol/L (22-29); Chloride 100 mmol/L (98-107); Globulin 2.8 g/dL (1.3-4.6); Glomerular Filtration Rate 99.6 mL/min (90-130); Glucose 131 mg/dL (65-115); Osmolality Calculated 285 mOsm/kg (285-295); Sodium 137 mmol/L (136-145); Total Bilirubin 0.2 mg/dL (0.15-1.2); Total Protein 7.3 g/dL (6.6-8.7)
[2021-10-07 16:50] LABS: HCG, Serum Qual Negative (Negative)
[2021-10-07 17:32] VITALS: BP 110/79; PULSE 68; RESP 18; TEMP 36.8; O2SAT 96
[2021-10-07] MEDS: ibuprofen 800 mg tablet PO (17:58)
--- NOTE | 2021-10-07 18:27 | PC.NURSE ---
IV dc'd prior to discharge.
== END 2021-10-07 17:59 | disposition home or self-care (01) ==
PROVIDERS: Emergency Provider Family Medicine; PCP Family Medicine
DX: N93.8 Other specified abnormal uterine and vaginal bleeding (principal)
CPT/HCPCS: 80053; 81003; 84703; 85025; 87210; 87491; 87591; 87661; 99283

== ENCOUNTER 2021-10-09 15:38 | Emergency (ER) | payer MEDICAID, SELFPAY ==
[2021-10-09 15:46] VITALS: BP 136/84; PULSE 99; RESP 18; TEMP 36.3; O2SAT 98; BMI 42.9
--- NOTE | 2021-10-09 15:53 | W.ED.GENADLT ---
HPI - General Adult General: Chief complaint: Vaginal Bleeding Stated complaint: Was asked to come back if bleeding got worse Time Seen by Provider: 10/09/21 15:52 Source: patient Mode of arrival: ambulatory History of Present Illness: 26-year-old female seen 2 days ago with abnormal uterine bleeding she just had a period this somewhat abbreviated and then started again she a lot of cramping with it test that time was negative hemoglobin was stable. Pelvic exam unremarkable GC chlamydia and wet mount were done at that time and have all resulted as negative. She states she still having cramping and bleeding bleeding is increased some as well. She had missed some days of her control and has not restarted it. She relates she takes control for regulation of her cycles as well as contraception. She has associated right flank pain but no vomiting no diarrhea. No dysuria urgency or frequency and urinalysis done 2 days ago was normal. No other symptoms or new symptoms beyond the increase in cramping and bleeding. Onset (ago): day(s) Severity: moderate Quality: other (Cramping) Pain Consistency: intermittent Relieving factors: none Exacerbating factors: none Associated symptoms: Reports chest pain, confusion, cough, diaphoresis, decreased appetite, dyspnea, fevers/chills, headache(s), malaise, nausea, rash, palpitations, seizures, short of breath, syncope, vomiting and weakness Review of Systems Const: Reports: malaise and diaphoresis; Denies: fever(s) or chills ENMT: Denies: throat pain, ear or mastoid pain, nasal discharge or nasal congestion Card: Reports: chest pain, palpitations and syncope Resp: Reports: dyspnea GI: Reports: nausea and vomiting : Denies: flank pain, difficulty voiding, dysuria, urinary frequency or urinary urgency Skin/Breast: Reports: rash Neuro: Reports: headache(s) and confusion PFSH ED PFSH: Medical History (Updated 10/09/21 @ 16:47 by Speedy Handley DO) Asthma Dysfunctional uterine bleeding Social History Smoking and tobacco status: never smoked Female Reproductive History: Date of last menstrual period: 08/24/21 Physical Exam Const: COMMON NORMALS: no acute distress GENERAL APPEARANCE: cooperative and comfortable ORIENTATION/CONSCIOUSNESS: Yes awake HENMT: COMMON NORMALS: normocephalic, atraumatic and hearing grossly normal bilaterally HEAD & SCALP: normocephalic and atraumatic Resp: COMMON NORMALS: normal respiratory effort, No retractions and No use of accessory muscles Course Vital Signs: Vital signs: Vital Signs Temperature 97.4 F L 10/09/21 15:46 Pulse Rate 90 10/09/21 16:36 Respiratory Rate 18 10/09/21 16:36 Blood Pressure 140/91 10/09/21 16:36 Pulse Oximetry 95 10/09/21 16:36 [facility] - General Adult Medical Decision Making Discussed different options the patient reviewed the previous work-up earlier this week. We will set up for an outpatient pelvic ultrasound. She was negative and her test is not likely anything we would see in the pelvic ultrasound would require emergent intervention. After long discussion we decided to do medroxyprogesterone withdrawal bleed for 10 days 10 days to milligrams daily at the end of the time discussed with her I would anticipate very heavy bleeding and some cramping. By that time she will need to review with her primary care doctor what options she would have for contraception and regulation of her periods she seems to be debating between is getting the pills initiating Depo-Provera recommend follow-up with her primary care for that return if she has problems. Medical Records I reviewed the patient's medical records. Lab Data I reviewed the patient's lab results. Discharge Plan Discharge Patient Disposition: Home Clinical Impression: Dysfunctional uterine bleeding Condition: Stable Prescriptions: New medroxyprogesterone 10 mg tablet 10 mg PO DAILY 10 Days Qty: 10 0RF Rx Instructions: begin day 16 of cycle diclofenac sodium 75 mg tablet,delayed release (DR/EC) 75 mg PO Q12H PRN (Reason: pain) Qty: 20 0RF No Action VyLibra 0.25-35 mg-mcg tablet 1 tab PO DAILY 0RF Tylenol 325 mg Tablet 650 mg PO Q6H PRN (Reason: Pain) 0RF Aleve 220 mg Tablet 220 mg PO Q12H PRN (Reason: Pain) 0RF ibuprofen 200 mg Tablet 600 mg PO Q6H PRN (Reason: Pain) 0RF escitalopram oxalate 5 mg tablet 5 mg PO QAM 0RF albuterol sulfate 90 mcg/actuation HFA aerosol inhaler 2 inh inhalation Q4H PRN (Reason: shortness of breath or wheezing) Qty: 18 0RF Discharge Orders: Discharge ED (Routine); Ordered 10/09/21 Ordered By: Speedy Handley Referrals: Amarjit Duncan MD [Primary Care Provider] - Discharge Diet: Usual diet Discharge Activity: Resume usual activity Patient Instructions: Opioid Safety Activity Restrictions/Additional Instructions: Follow-up with your doctor within the next 10 days before completing medroxyprogesterone. Case management make arrangements for an outpatient pelvic ultrasound Coding Level of Care Code ED Central Supply Technician Supervisor for Ashkan Ivan
[2021-10-09 16:36] VITALS: BP 140/91; PULSE 90; RESP 18; O2SAT 95
--- NOTE | 2021-10-16 19:01 | DCPLANNER ---
Addendum entered by Kimberly Denton 01/21/22 12:08: Patient had a follow up appointment scheduled for a pelvic US - patient did attend appointment. Addendum entered by Kimberly Denton 11/18/21 06:12: Patient has an outpatient ultra sound scheduled for Friday, December 03, 2021 at 7:15. Centralized scheduling will call patient with appointment information. Original Note: accountant manager had message to schedule an outpatient ultrasound for patient. accountant manager faxed signed order for a pelvic ultrasound to centralized scheduling, will call patient with appointment information.
== END 2021-10-09 16:39 | disposition home or self-care (01) ==
PROVIDERS: Emergency Provider Family Medicine; PCP Family Medicine
DX: N93.9 Abnormal uterine and vaginal bleeding, unspecified (principal)
CPT/HCPCS: 99283

== ENCOUNTER 2022-04-30 16:10 | Emergency (ER) | payer MEDICAID, SELFPAY ==
[2022-04-30 16:18] VITALS: BP 135/87; PULSE 98; RESP 14; TEMP 36.7; O2SAT 100; BMI 40.8
--- NOTE | 2022-04-30 17:12 | W.ED.HA ---
HPI - Headache General: Chief Complaint: Headache Stated Complaint: migraine with vision problems Time Seen by Provider: 04/30/22 17:03 History of Present Illness: 26-year-old female comes in today with complaints of migraine headache. Patient reported some right eye visual disturbance last night and then again today along with the headache. Patient has had previous episodes of migraine headaches. No prior imaging was done. Migraine headaches have worsened. Associated symptoms: Reports nausea; Deny chest pain or fever(s) Review of Systems Const: Denies: fever(s) Eyes: Reports: seeing flashes Card: Denies: chest pain Resp: Denies: dyspnea GI: Reports: nausea Musc: Denies: neck pain Neuro: Reports: headache(s) PFS ED PFSH: Medical History (Updated 04/30/22 @ 17:12 by CAPRI Dailey) Asthma Dysfunctional uterine bleeding Social History Smoking and tobacco status: never smoked Female Reproductive History: Date of last menstrual period: 08/24/21 Physical Exam Const: COMMON NORMALS: alert HENMT: COMMON NORMALS: normocephalic and Normal external nose present HEAD & SCALP: normocephalic NOSE: Normal external nose present THROAT: posterior oropharynx normal Eye: GENERAL EYE: appearance normal, both eyes and all related structures Neck/C-Spine: COMMON NORMALS: full ROM Resp: COMMON NORMALS: normal respiratory effort Cardio: COMMON NORMALS: regular rate RATE: regular rate GI: COMMON NORMALS: non-tender Extremity: COMMON NORMALS: normal to inspection Neuro: SENSORIUM/ORIENTATION: Yes alert Skin: COMMON NORMALS: turgor normal GENERAL SKIN EXAM: turgor normal Course ED course: 1814, patient reports headache much improved and felt comfortable to go home. Patient was released to home with instructions for follow-up or return to the ER. Vital Signs: Vital signs: Vital Signs Temperature 98.1 F 04/30/22 16:18 Pulse Rate 98 04/30/22 16:18 Respiratory Rate 14 04/30/22 16:18 Blood Pressure 135/87 04/30/22 16:18 Pulse Oximetry 100 04/30/22 16:18 Oxygen Delivery Me thod 04/30/22 16:18 MDM - Headache Medical Decision Making Patient comes in today for complaints of severe migraine headache. Patient reports headache that started last night with some visual disturbance of the right eye. On exam patient was alert oriented. Patient appears nontoxic. Respirations are even lungs are clear to auscultation. No focal neurodeficits were noted. Vital signs are normal. Differential diagnosis includes but not limited to migraine headache, tension headache, ocular migraine, tumor, intracranial bleeding. CT of the head was unremarkable. Patient was treated for migraine with Reglan, ketorolac, and dexamethasone. Patient tolerated well. Patient reported that improvement in symptoms. Patient was released to home with naproxen and promethazine prescriptions. Lab Data Radiology Impressions Head CT 04/30/22 17:18 IMPRESSION: No acute intracranial abnormality. Discharge Plan Discharge Patient Disposition: Home Clinical Impression: Migraine Qualifiers: Migraine type: with aura Status migrainosus presence: without status migrainosus Intractability: not intractable Qualified Code(s): G43.109 - Migraine with aura, not intractable, without status migrainosus Condition: Stable Prescriptions: New naproxen 500 mg tablet 500 mg PO BID PRN (Reason: migraine headache) Qty: 20 0RF promethazine 25 mg tablet 25 mg PO BID PRN (Reason: migraine headache) Qty: 20 0RF Discontinued naproxen sodium [Aleve] 220 mg Tablet 220 mg PO Q12H PRN (Reason: Pain) ibuprofen 200 mg Tablet 600 mg PO Q6H PRN (Reason: Pain) diclofenac sodium 75 mg tablet,delayed release (DR/EC) 75 mg PO Q12H PRN (Reason: pain) Qty: 20 0RF No Action VyLibra 0.25-35 mg-mcg tablet 1 tab PO DAILY Tylenol 325 mg Tablet 650 mg PO Q6H PRN (Reason: Pain) escitalopram oxalate 5 mg tablet 5 mg PO QAM albuterol sulfate 90 mcg/actuation HFA aerosol inhaler 2 inh inhalation Q4H PRN (Reason: shortness of breath or wheezing) Qty: 18 0RF Discharge Orders: Discharge ED (Routine); Ordered 04/30/22 Ordered By: Wolfgang Mc Referrals: Amarjit Duncan MD [Primary Care Provider] - Discharge Diet: Usual diet Discharge Activity: Increase activity as tolerated Patient Instructions: Migraine Headache (ED) Activity Restrictions/Additional Instructions: Home and rest. Drink plenty of fluids. Take medication naproxen and promethazine every 12 hours as needed for recurrent migraine headache. Together the medication may make you sleepy. Promethazine is a medication that will cause the drowsiness. Usually this cocktail has been shown to be very effective for migraine headaches. Follow-up with primary care for further instructions and treatment as needed. Return to ER for new concerns or worsening symptoms such as fever greater than 100.4, inability to hold fluids down, or uncontrolled pain. Coding Level of Care Code ED Support Technician for Ashkan Fwd Exam Comprehensive
--- NOTE | 2022-04-30 17:18 | CTR_ITS ---
PROCEDURE INFORMATION: Exam: CT Head Without Contrast Exam date and time: 04/30/2022 5:23 PM Age: 26 years old Clinical indication: Pain; Headache; Migraine; Additional info: Headache no prior imaging, worsening TECHNIQUE: Imaging protocol: Computed tomography of the head without contrast. Radiation optimization: All CT scans at this facility use at least one of these dose optimization techniques: automated exposure control; mA and/or kV adjustment per patient size (includes targeted exams where dose is matched to clinical indication); or iterative reconstruction. COMPARISON: CT head wo con* [id number] 02/05/2017 11:35 AM RADIATION DOSE METRICS: Total DLP (mGy-cm): 1106.48 FINDINGS: Brain: Normal. No hemorrhage. Unremarkable white matter. No mass effect. Cerebral ventricles: No ventriculomegaly. Paranasal sinuses: Visualized sinuses are unremarkable. No fluid levels. Mastoid air cells: Visualized mastoid air cells are well aerated. Bones/joints: Unremarkable. No acute fracture. Soft tissues: Unremarkable. CT/CT head wo con* [id number] IMPRESSION: No acute intracranial abnormality.
[2022-04-30] MEDS: dexamethasone 10 mg/mL INJ IVP (17:52)
[2022-04-30] MEDS: sodium chloride 0.9% 500 ML 999 ML IV (17:53)
[2022-04-30] MEDS: metoclopramide 5 mg/mL SDV 2 mL 10 MG IVP (17:53)
[2022-04-30] MEDS: ketorolac 30 mg/mL INJ 15 MG IVP (17:53)
[2022-04-30 18:28] LABS: HCG Qualitative Urine. Negative (Negative)
== END 2022-04-30 18:40 | disposition home or self-care (01) ==
PROVIDERS: Emergency Provider Nurse Practitioner Family; PCP Family Medicine
DX: G43.109 Migraine with aura, not intractable, without status migrainosus (principal)
CPT/HCPCS: 70450; 81025; 96361; 96374; 96375; 99285; J1100; J1885; J2765; J7040

== ENCOUNTER → 2022-08-14 16:59 | Outpatient (BNVA) | payer MEDICAID, SELFPAY | PROVIDERS: PCP Family Medicine; Visit Provider Registered Nurse Neonatal Intensive Care | DX: U07.1 COVID-19 (principal); R05.9 Cough, unspecified | CPT/HCPCS: 87426 ==

== ENCOUNTER → 2022-08-21 10:47 | Outpatient (BNVA) | payer MEDICAID, SELFPAY | PROVIDERS: PCP Family Medicine; Visit Provider Nurse Practitioner Family | DX: R39.9 Unspecified symptoms and signs involving the genitourinary system (principal) | CPT/HCPCS: 81000 ==

== ENCOUNTER → 2022-12-09 14:28 | Outpatient (BNVA) | payer MEDICAID, SELFPAY | PROVIDERS: PCP Family Medicine; Visit Provider Nurse Practitioner Family | DX: R05.9 Cough, unspecified (principal) | CPT/HCPCS: 87426 ==

== ENCOUNTER → 2023-02-04 11:51 | Outpatient (BNVA) | payer MEDICAID, SELFPAY | PROVIDERS: PCP Family Medicine; Visit Provider Nurse Practitioner Family | DX: R05.9 Cough, unspecified (principal) | CPT/HCPCS: 87426 ==

== ENCOUNTER → 2023-07-21 10:18 | Outpatient (BNVA) | payer MEDICAID, SELFPAY | PROVIDERS: PCP Family Medicine; Visit Provider Nurse Practitioner Family | DX: R05.9 Cough, unspecified (principal) | CPT/HCPCS: 87426 ==

== ENCOUNTER 2024-06-06 08:58 | Emergency (ER) | payer MEDICAID, SELFPAY ==
[2024-06-06 09:28] VITALS: BP 142/101; PULSE 114; RESP 16; TEMP 36.8; O2SAT 97; BMI 48.4
--- NOTE | 2024-06-06 09:38 | ECG_ITS ---
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 Measurements Intervals [place] Rate: 107 P: 55 SC: 159 QRS: 37 QRSD: 90 T: 19 QT: 307 QTc: 410 Interpretive Statements SINUS TACHYCARDIA NONSPECIFIC T-WAVE ABNORMALITY ABNORMAL RHYTHM ECG No previous ECG available for comparison Electronically Signed On 06-06-2024 17:25:46 NEUROLOGY TECHNICIAN by Kristi Gutierrez M.D. [id number]
[2024-06-06 11:04] VITALS: O2SAT 99
[2024-06-06 11:06] VITALS: BP 134/101; PULSE 110; RESP 22; O2SAT 97
--- NOTE | 2024-06-06 11:09 | XRR_ITS ---
PROCEDURE INFORMATION: Exam: XR Chest Exam date and time: 06/06/2024 11:27 AM Age: 28 years old Clinical indication: Condition or disease; Lung condition and disease; Asthma; Severity not specified; Cough; Additional info: Cough/congestion/asthma TECHNIQUE: Imaging protocol: Radiologic exam of the chest. Views: 1 view. COMPARISON: CR XR chest 1V portable [id number] 09/11/2021 3:59 PM FINDINGS: Lungs: Unremarkable. No consolidation. Pleural spaces: Unremarkable. No pleural effusion. No pneumothorax. Heart/Mediastinum: Unremarkable. No cardiomegaly. Bones/joints: Unremarkable. XR/XR chest 1V portable [id number] IMPRESSION: No acute findings.
--- NOTE | 2024-06-06 11:10 | ED_ITS ---
HPI - COVID General: Chief Complaint: COVID symptoms Stated Complaint: fever,cough,sob Time Seen by Provider: 06/06/24 09:03 Source: patient Mode of arrival: ambulatory Limitations: no limitations Triage information: Has fever, cough or shortness of breath . No known COVID + exposure last 14 days History of Present Illness: Patient is a 28-year-old female with a history of asthma here with complaints of a cough, shortness of breath, nasal congestion and discharge, sinus pain/pressure, headache, chills, loss of taste and smell and stating I think I have COVID . She is reportedly out of her rescue albuterol inhaler. She states she, at baseline, has to take this approximately 3 times a month and more often when she gets sick. MD complaint: has COVID symptoms Prior covid testing: no COVID 19 common symptoms: positive chills, non-productive cough, dyspnea and nasal congestion; negative fever(s), headache(s), throat pain, vomiting or diarrhea COVID 19 other sytmptoms: negative chest pain Onset (ago): day(s) Severity: moderate Pertinent comorbid conditions: COPD/respiratory disease (asthma) Treatment prior to arrival: none COVID Results: SARS-CoV-2 Antigen (Rapid) Positive (Negative) H 07/21/23 10:1 8 SARS-CoV-2 RNA (RT-PCR) Not detected (NOT DETECTED) 01/23/20 2 0:40 SARS-CoV-2 (PCR) Pending 06/06/24 09:37 Coronavirus Type 229E (PCR) Pending 06/06/24 09:37 Related Data Previous Rx's Medication Instructions Recorded albuterol sulfate 90 mcg/actuation 2 puff inhalation Q6H PRN 08/14/22 aerosol inhaler (Ventolin HFA) shortness of breath or wheezing #8.5 grams sulfamethoxazole 800 1 tab PO BID #20 tabs 04/21/24 mg-trimethoprim 160 mg tablet (Bactrim DS) albuterol sulfate 90 mcg/actuation 2 inh inhalation Q4H PRN shortness 06/06/24 aerosol inhaler of breath or wheezing #18 grams dexamethasone 6 mg tablet 6 mg PO DAILY #6 tabs 06/06/24 Allergies Allergy/AdvReac Type Severity Reaction Status Date / Time cephalexin [From Keflex] Allergy ADR-Photose Verified 04/21/24 13:15 nsitivity montelukast [From Singulair] Allergy ADR-Cough Verified 04/21/24 13:15 Review of Systems Const: Reports: chills; Denies: fever(s) Eyes: Denies: change in vision, blurry vision, eye discharge, floaters or seei ng flashes ENMT: Reports: nasal discharge, nasal congestion and sinus pain; Denies: throat pain, odynophagia or ear or mastoid pain Card: Denies: chest pain Resp: Reports: dyspnea, non-productive cough and chest congestion; Denies: wheezing or hemoptysis GI: Denies: vomiting or diarrhea : Denies: flank pain or dysuria Musc: Denies: neck pain, back pain, extremity pain, extremity swelling, joint pain or joint swelling Skin/Breast: Denies: rash Neuro: Denies: headache(s) PFS ED PFSH: Medical History Dysfunctional uterine bleeding Asthma Social History Smoking and tobacco/nicotine status: current every day tobacco/nicotine user Female Reproductive History: Date of last menstrual period: 05/29/24 Physical Exam Const: COMMON NORMALS: no acute distress, patient oriented x3, no limitations, alert and well nourished GENERAL APPEARANCE: cooperative NUTRITIONAL APPEARANCE: obese (BMI 48.4) ORIENTATION/CONSCIOUSNESS: Yes awake, Yes oriented to person, Yes oriented to place and Yes oriented to time HENMT: COMMON NORMALS: normocephalic, atraumatic, hearing grossly normal bilaterally, external ears normal, EAC's normal, TM's normal bilaterally, Normal external nose present, moist oral mucous membranes and oropharynx normal HEAD & SCALP: normal to inspection, normocephalic and atraumatic FACE & SINUS: normal facial exam and sinus tenderness NOSE: Normal external nose present and Nasal discharge present EXTERNAL EAR: Yes external ears normal EXTERNAL AUDITORY CANAL: EAC's normal TYMPANIC MEMBRANE: TM's normal bilaterally MOUTH: Normal oral and palatal mucosa present and lip normal THROAT: posterior oropharynx normal, tonsils normal and uvula midline Eye: COMMON NORMALS: Equal, round and reactive pupils present, EOMs intact bilaterally and conjunctivae normal CONJUNCTIVA: Yes conjunctivae normal PUPIL: Yes Equal, round and reactive pupils present Neck/C-Spine: COMMON NORMALS: no lymphadenopathy Chest: COMMONS NORMALS: normal inspection of the chest and normal palpation of entire chest wall Resp: COMMON NORMALS: normal respiratory effort and clear to auscultation bilaterally AUSCULTATION: clear to auscultation bilaterally Cardio: COMMON NORMALS: regular rhythm RATE: tachycardic (mild) RHYTHM: regular rhythm Extremity: COMMON NORMALS: no clubbing, cyanosis or edema, no calf tenderness and no pedal edema GENERAL: Yes normal exam except as noted Neuro: COMMON NORMALS: patient oriented x3 SENSORIUM/ORIENTATION: Yes alert, Yes oriented to person, Yes oriented to place and Yes oriented to time Course Vital Signs: Vital signs: Vital Signs Temperature 98.2 F 06/06/24 09:28 Pulse Rate 90 06/06/24 11:39 Respiratory Rate 22 H 06/06/24 11:06 Blood Pressure 110/71 06/06/24 11:39 Pulse Oximetry 98 06/06/24 11:39 Oxygen Delivery Me thod Room Air 06/06/24 11:06 MDM - COVID Medical Decision Making Patient clinically appears in no acute distress. Her CXR is unremarkable. She does not want to stay for results and requested respiratory panel and then discharge. We will contact her with any positive results. Will go ahead and provide a refill for her albuterol rescue inhaler and place her on steroids. Return ED precautions given. Differential Diagnosis Likely COVID 19, influenza and other viral infection Medical Records I reviewed the patient's medical records. Lab Data Radiology Impressions Chest X-Ray 06/06/24 11:09 IMPRESSION: No acute findings. SARS-CoV-2 Antigen (Rapid) Positive (Negative) H 07/21/23 10:1 8 SARS-CoV-2 RNA (RT-PCR) Not detected (NOT DETECTED) 01/23/20 2 0:40 SARS-CoV-2 (PCR) Pending 06/06/24 09:37 Coronavirus Type 229E (PCR) Pending 06/06/24 09:37 All radiology interpretation(s) finalized by discharge Discharge Plan Discharge Patient Disposition: Home Clinical Impression: Viral upper respiratory tract infection with cough Condition: Stable Prescriptions: New dexamethasone 6 mg tablet 6 mg PO DAILY Qty: 6 0RF Continued albuterol sulfate 90 mcg/actuation HFA aerosol inhaler 2 inh inhalation Q4H PRN (Reason: shortness of breath or wheezing) Qty: 18 0RF No Action albuterol sulfate [Ventolin HFA] 90 mcg/actuation HFA aerosol inhaler 2 puff inhalation Q6H PRN (Reason: shortness of breath or wheezing) Qty: 8.5 0RF sulfamethoxazole-trimethoprim [Bactrim DS] 800-160 mg tablet 1 tab PO BID Qty: 20 0RF Discharge Orders: Discharge ED (Routine); Ordered 06/06/24 Ordered By: Camille Camara Referrals: Amarjit Duncan MD [Primary Care Provider] - Patient Instructions: Upper Respiratory Infection (DC), Viral Syndrome (ED) Activity Restrictions/Additional Instructions: As we discussed, you will be contacted later today for any positive results on your respiratory panel. Chest x-ray performed here in the emergency department was unremarkable. We will refill your emergency inhaler and place you on steroids. You need to return to the emergency department for worsening shortness of breath or difficulty breathing, or any other concerns you may have. Hope you begin to feel better soon. Coding Level of Care Code ED Client Success Manager for Ashkan Ivan
[2024-06-06 11:39] VITALS: BP 110/71; PULSE 90; O2SAT 98
[2024-06-06 13:14] LABS: Adenovirus Not Detected (NOT DETECT); Chlamydia Pneumoniae Not Detected (NOT DETECT); Coronavirus 229E,HKU1,NL63,OC4 Not Detected (NOT DETECT); Human Metapneumovirus Not Detected (NOT DETECT); Human Rhinovirus/Enterovirus Not Detected (NOT DETECT); Influenza A Not Detected (NOT DETECT); Influenza A H1 Not Detected (NOT DETECT); Influenza A H1-2009 Not Detected (NOT DETECT); Influenza A H3 Not Detected (NOT DETECT); Influenza B Not Detected (NOT DETECT); Mycoplasma Pneumoniae Not Detected (NOT DETECT); Parainfluenza Virus Type 1 Not Detected (NOT DETECT); Parainfluenza Virus Type 2 Not Detected (NOT DETECT); Parainfluenza Virus Type 3 Not Detected (NOT DETECT); Parainfluenza Virus Type 4 Not Detected (NOT DETECT); Respiratory Syncytial Virus A Not Detected (NOT DETECT); Respiratory Syncytial Virus B Not Detected (NOT DETECT); SARS-COV-2 Not Detected (NOT DETECT)
== END 2024-06-06 11:40 | disposition home or self-care (01) ==
PROVIDERS: Emergency Provider Physician Assistant; PCP Family Medicine
DX: J06.9 Acute upper respiratory infection, unspecified (principal); J45.909 Unspecified asthma, uncomplicated
CPT/HCPCS: 71045; 87486; 87581; 87633; 93005; 99284

== ENCOUNTER 2024-06-08 13:49 | Emergency (ER) | payer MEDICAID, SELFPAY ==
--- NOTE | 2024-06-08 13:52 | XR_ITS ---
WS: [id number] Portable AP upright chest, 06/08/2024 Clinical Data: sob Comparison: Portable chest, 06/06/2024 Findings: No nodules, masses or effusions are seen. The heart is normal. The pulmonary vascularity is not increased. No pneumonia or pneumothorax is seen. XR/XR chest 1V portable [id number] Impression: Negative chest.
[2024-06-08 13:54] VITALS: BP 129/74; PULSE 124; RESP 18; TEMP 36.6; O2SAT 98; BMI 48.4
--- NOTE | 2024-06-08 15:37 | ECG_ITS ---
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 Measurements Intervals [place] Rate: 90 P: 46 NM: 144 QRS: 30 QRSD: 90 T: 45 QT: 349 QTc: 427 Interpretive Statements SINUS RHYTHM nondiagnostic T wave changes Compared to ECG 06/06/2024 09:38:41 Sinus tachycardia no longer present T-wave abnormality no longer present Electronically Signed On 06-08-2024 17:23:51 MOWER OPERATOR by Kristi Gutierrez M.D. [id number]
--- NOTE | 2024-06-08 15:52 | W.ED.SOB ---
HPI - SOB/Dyspnea General: Chief Complaint: Shortness of Breath/Dyspnea Stated Complaint: SOB Time Seen by Provider: 06/08/24 15:02 Source: patient Mode of arrival: ambulatory Limitations: no limitations History of Present Illness: HPI Narrative: Patient is a 28-year-old female who presents the emergency department complaining of worsening shortness of breath and chest pain. She was seen here 2 days ago, had a respiratory panel did not result in any viral infection, she denied lab work at that time was sent home. States that she has gotten worse since, if she feels like her lungs are on fire. Reports a history of asthma, has been using her inhaler but states that this has not been helping. Also was prescribed dexamethasone and states she feels like this helps a little bit. She is reporting that her chest pain has gotten worse, denies cardiac history. Also is reporting a cough, and upper respiratory symptoms such as sinus pain, nasal discharge, and congestion. Denies sore throat, fevers, chills, syncopal episodes, palpitations, or other symptoms at this time. Noted to be tachycardic at time of examination as well as in triage. Afebrile. MD elicited complaint: shortness of breath and pain with inspiration Pertinent past history: asthma Onset (ago): day(s) Timing: constant and progressively worsening Severity: moderate Known history of: asthma Associated symptoms: Reports chest pain; Deny abdominal pain, fever(s), lightheadedness, nausea, palpitations or vomiting Treatment prior to arrival: other (Steroids) Related Data Previous Rx's Medication Instructions Recorded albuterol sulfate 90 mcg/actuation 2 puff inhalation Q6H PRN 08/14/22 aerosol inhaler (Ventolin HFA) shortness of breath or wheezing #8.5 grams sulfamethoxazole 800 1 tab PO BID #20 tabs 04/21/24 mg-trimethoprim 160 mg tablet (Bactrim DS) albuterol sulfate 90 mcg/actuation 2 inh inhalation Q4H PRN shortness 06/06/24 aerosol inhaler of breath or wheezing #18 grams dexamethasone 6 mg tablet 6 mg PO DAILY #6 tabs 06/06/24 azithromycin 500 mg tablet 500 mg PO DAILY 5 days #5 tabs 06/08/24 Allergies Allergy/AdvReac Type Severity Reaction Status Date / Time cephalexin [From Keflex] Allergy ADR-Photose Verified 06/08/24 13:59 nsitivity montelukast [From Singulair] Allergy ADR-Cough Verified 06/08/24 13:59 Review of Systems General: Reports: 10 or more systems reviewed and unremarkable except in HPI and below Const: Denies: fever(s), chills or fatigue Eyes: Denies: change in vision ENMT: Reports: nasal discharge, nasal congestion and sinus pain; Denies: throat pain or ear or mastoid pain Card: Reports: chest pain; Denies: palpitations, swelling of feet/ankles or lightheadedness Resp: Reports: dyspnea and pain on inspiration; Denies: productive cough or wheezing GI: Denies: abdominal pain, nausea, vomiting, diarrhea or constipation : Denies: flank pain, difficulty voiding, dysuria or urinary frequency Musc: Denies: neck pain, back pain or joint pain Skin/Breast: Denies: rash Neuro: Denies: headache(s), numbness in extremities or weakness in extremities PFSH ED PFSH: Medical History Dysfunctional uterine bleeding Asthma Social History Smoking and tobacco/nicotine status: current every day tobacco/nicotine user Female Reproductive History: Date of last menstrual period: 05/31/24 Physical Exam Const: COMMON NORMALS: no acute distress, patient oriented x3 and no limitations GENERAL APPEARANCE: cooperative and well developed NUTRITIONAL APPEARANCE: obese morbidly obese ORIENTATION/CONSCIOUSNESS: Yes awake, Yes oriented to person, Yes oriented to place and Yes oriented to time HENMT: COMMON NORMALS: normocephalic, atraumatic, hearing grossly normal bilaterally, Normal nasal mucous membranes and turbinates present, moist oral mucous membranes and oropharynx normal HEAD & SCALP: normocephalic and atraumatic NOSE: Normal nasal mucous membranes and turbinates present Eye: COMMON NORMALS: Equal, round and reactive pupils present, EOMs intact bilaterally and conjunctivae normal CONJUNCTIVA: Yes conjunctivae normal PUPIL: Yes Equal, round and reactive pupils present Neck/C-Spine: COMMON NORMALS: full ROM, supple and no JVD Resp: COMMON NORMALS: normal respiratory effort, No retractions, No use of accessory muscles and clear to auscultation bilaterally AUSCULTATION: clear to auscultation bilaterally Cardio: COMMON NORMALS: no JVD, regular rhythm, No clicks present (Cardio), No murmurs present (Cardio) and No rub (Cardio) RATE: tachycardic RHYTHM: regular rhythm GI: COMMON NORMALS: Normal to inspection, nondistended, normoactive bowel sounds present, Soft to palpation and non-tender AUSCULTATION: Yes normoactive bowel sounds PALPATION: Yes Soft to palpation RECTAL EXAM: deferred Extremity: COMMON NORMALS: normal to inspection, full ROM and capillary refill normal Neuro: COMMON NORMALS: patient oriented x3, moves all extremities, no focal motor deficits and no sensory deficits noted SENSORIUM/ORIENTATION: Yes oriented to person, Yes oriented to place and Yes oriented to time Skin: COMMON NORMALS: no rashes or lesions noted GENERAL SKIN EXAM: no rashes or lesions noted Course Vital Signs: Vital signs: Vital Signs Temperature 97.9 F 06/08/24 13:54 Pulse Rate 88 06/08/24 18:31 Respiratory Rate 16 06/08/24 18:31 Blood Pressure 126/78 06/08/24 18:31 Pulse Oximetry 95 06/08/24 18:31 Oxygen Delivery Me thod Room Air 06/08/24 13:54 MDM - SOB/Dyspnea Medical Decision Making Patient presented here for the second time in a couple of days due to worsening shortness of breath and some chest pain. Her EKG unremarkable, troponin normal and chest x-ray unremarkable. Her respiratory panel was negative a few days ago, she has a history of asthma and was prescribed Decadron for home. Her white count elevated likely secondary to her use of inhaled steroids as well as a Decadron. Overall rest of workup was unremarkable. I still believe that this is viral, potentially an asthma exacerbation and she does not use nebulized albuterol at home. Encouraged her to follow-up with primary care to discuss obtaining 1 of these devices, and we will start her on a Z-Justin to cover for any potential bacterial etiology such as atypical acute bronchitis. She feels comfortable with this plan, SpO2 has been normal, she will return if her condition continues to worsen. In addition to her workup I added a D-dimer to rule out potential blood clot, D-dimer was negative. I discussed this case with Dr. Bukc here in the emergency department. Lab Data 06/08/24 15:53 06/08/24 15:53 Labs/Radiology: Radiology Impressions Chest X-Ray 06/08/24 13:52 Impression: Negative chest. Laboratory Results WBC 17.29 10^3/uL (3.29-11.43) H 06/08/24 15:53 RBC 5.00 10^6/uL (3.85-5.65) 06/08/24 15:53 Hgb 14.20 g/dL (11.27-16.99) 06/08/24 15:53 Hct 43.3 % (36-47) 06/08/24 15:53 MCV 86.6 fl (85-98) 06/08/24 15:53 MCH 28.4 pg (27-33) 06/08/24 15:53 MCHC 32.8 g/dL (30-55) 06/08/24 15:53 RDW 13.2 % (12.1-15.1) 06/08/24 15:53 Plt Count 393 10^3/cmm (157-399) 06/08/24 15:53 MPV 9.5 fL (7.4-10.4) 06/08/24 15:53 Neut % (Auto) 84.5 % 06/08/24 15:53 Lymph % (Auto) 8.6 % 06/08/24 15:53 [place] % (Auto) 5.7 % 06/08/24 15:53 Eos % (Auto) 0.1 % 06/08/24 15:53 Baso % (Auto) 0.3 % 06/08/24 15:53 Neut # (Auto) 14.61 10^3/uL (1.8-7.7) H 06/08/24 15:53 Lymph # (Auto) 1.5 10^3/uL (0.8-4.8) 06/08/24 15:53 [place] # (Auto) 1.0 10^3/uL (0.2-0.9) H 06/08/24 15:53 Eos # (Auto) 0.0 10^3/uL (0.0-0.8) 06/08/24 15:53 Baso # (Auto) 0.1 10^3/uL (0.0-0.1) 06/08/24 15:53 Nucleated RBC % (auto) 0 % 06/08/24 15:53 Nucleated RBCs # 0.0 /100WBC 06/08/24 15:53 D-Dimer 0.47 ug/mLFEU (0-0.59) 06/08/24 15:53 Sodium 137 mmol/L (136-145) 06/08/24 15:53 Potassium 4.5 mmol/L (3.5-5.1) 06/08/24 15:53 Chloride 99 mmol/L (98-107) 06/08/24 15:53 Carbon Dioxide 23 mmol/L (22-29) 06/08/24 15:53 Anion Gap 19.5 (5-19) H 06/08/24 15:53 BUN 17 mg/dL (6-20) 06/08/24 15:53 Creatinine 1.0 mg/dL (0.5-0.9) H 06/08/24 15:53 GFR Calculation 65.1 mL/min (90-130) L 06/08/24 15:53 Glucose 126 mg/dL (65-115) H 06/08/24 15:53 Calculated Osmolality 287 mOsm/kg (285-295) 06/08/24 15:53 Calcium 9.2 mg/dL (8.5-10.5) 06/08/24 15:53 Total Bilirubin 0.2 mg/dL (0.15-1.2) 06/08/24 15:53 AST 21 U/L (0-32) 06/08/24 15:53 ALT 40 U/L (0-33) H 06/08/24 15:53 Alkaline Phosphatase 115 U/L (35-105) H 06/08/24 15:53 Troponin T Baseline < 6 ng/L (0-10) 06/08/24 15:53 Total Protein 7.3 g/dL (6.6-8.7) 06/08/24 15:53 Albumin 4.3 g/dL (3.5-5.2) 06/08/24 15:53 Globulin 3.0 g/dL (1.3-4.6) 06/08/24 15:53 HCG, Qual Negative (Negative) 06/08/24 15:53 Urine Color Dark yellow (Yellow) A 06/08/24 16:48 Urine Appearance Clear (CLEAR) 06/08/24 16:48 Urine pH 5.5 (5-7) 06/08/24 16:48 Ur Specific [place] 1.037 (1.005-1.030) H 06/08/24 16:48 Urine Protein Trace (Negative) A 06/08/24 16:48 Urine Glucose (UA) Negative (Normal) 06/08/24 16:48 Urine Ketones Trace (Negative) 06/08/24 16:48 Urine Blood Negative (Negative) 06/08/24 16:48 Urine Nitrate Negative (Negative) 06/08/24 16:48 Urine Bilirubin Negative (Negative) 06/08/24 16:48 Urine Urobilinogen 1.0 mg/dL (Negative) 06/08/24 16:48 Ur Leukocyte Esterase Negative (Negative) 06/08/24 16:48 Urine RBC 21-50 /hpf (0-2) H 06/08/24 16:48 Urine WBC 0-5 /hpf (0-5) 06/08/24 16:48 Ur Squamous Epith Cells 0-5 /hpf (0-5) 06/08/24 16:48 Amorphous Sediment Not Reportable 06/08/24 16:48 Urine Bacteria None seen /hpf (NONE) 06/08/24 16:48 Hyaline Casts 19.83 /lpf 06/08/24 16:48 All radiology interpretation(s) finalized by discharge Discharge Plan Discharge Patient Disposition: Home Clinical Impression: Viral upper respiratory tract infection with cough Asthma Qualifiers: Asthma severity: mild Asthma persistence: persistent Asthma complication type: with acute exacerbation Qualified Code(s): J45.31 - Mild persistent asthma with (acute) exacerbation Condition: Stable Prescriptions: New azithromycin 500 mg tablet 500 mg PO DAILY 5 Days Qty: 5 0RF No Action albuterol sulfate [Ventolin HFA] 90 mcg/actuation HFA aerosol inhaler 2 puff inhalation Q6H PRN (Reason: shortness of breath or wheezing) Qty: 8.5 0RF sulfamethoxazole-trimethoprim [Bactrim DS] 800-160 mg tablet 1 tab PO BID Qty: 20 0RF dexamethasone 6 mg tablet 6 mg PO DAILY Qty: 6 0RF albuterol sulfate 90 mcg/actuation HFA aerosol inhaler 2 inh inhalation Q4H PRN (Reason: shortness of breath or wheezing) Qty: 18 0RF Discharge Orders: Discharge ED (Routine); Ordered 06/08/24 Ordered By: Robbie Judd Referrals: Amarjit Duncan MD [Primary Care Provider] - Activity Restrictions/Additional Instructions: Please follow-up with your primary care provider in the next couple of days as discussed. Continue your Decadron, start taking azithromycin. Continue rescue inhaler, discussed with primary care obtaining nebulized albuterol therapy. Please drink plenty fluids, ibuprofen and Tylenol for fever or bodyaches. Return with any worsening chest pain, worsening breathing or pulse oxygen readings less than 90%, or any other concerning symptoms. Coding Level of Care Code ED Hospice Plan Administrator for Ashkan Ivan
[2024-06-08 16:02] LABS: Basophils # 0.1 10^3/uL (0.0-0.1); Basophils % 0.3 %; Eosinophils % 0.1 %; Hematocrit 43.3 % (36-47); Lymphocytes # 1.5 10^3/uL (0.8-4.8); Lymphocytes % 8.6 %; Mean Corpuscular HGB Conc 32.8 g/dL (30-55); Mean Corpuscular Hemoglobin 28.4 pg (27-33); Mean Corpuscular Volume 86.6 fl (85-98); Mean Platelet Volume 9.5 fL (7.4-10.4); Monocytes % 5.7 %; Neutrophils # 14.61 10^3/uL (1.8-7.7); Neutrophils % 84.5 %; Nucleated Red Blood Cells % 0 %; Platelet Count 393 10^3/cmm (157-399); Red Cell Distribution Width 13.2 % (12.1-15.1); White Blood Count 17.29 10^3/uL (3.29-11.43)
[2024-06-08 16:18] LABS: HCG, Serum Qual Negative (Negative)
[2024-06-08 16:20] LABS: D Dimer 0.47 ug/mLFEU (0-0.59)
[2024-06-08 16:26] LABS: Troponin(5th) Baseline < 6 ng/L (0-10)
[2024-06-08 16:27] LABS: Alanine Aminotransferase 40 U/L (0-33); Albumin Level 4.3 g/dL (3.5-5.2); Alkaline Phosphatase 115 U/L (35-105); Anion Gap 19.5 (5-19); Aspartate Amino Transferase 21 U/L (0-32); Blood Urea Nitrogen 17 mg/dL (6-20); Calcium 9.2 mg/dL (8.5-10.5); Carbon Dioxide 23 mmol/L (22-29); Chloride 99 mmol/L (98-107); Creatinine Clr Calc Pharmacy 109.0641; Glomerular Filtration Rate 65.1 mL/min (90-130); Glucose 126 mg/dL (65-115); Osmolality Calculated 287 mOsm/kg (285-295); Potassium 4.5 mmol/L (3.5-5.1); Sodium 137 mmol/L (136-145); Total Bilirubin 0.2 mg/dL (0.15-1.2); Total Protein 7.3 g/dL (6.6-8.7)
[2024-06-08 17:36] LABS: Bilirubin Urine Negative (Negative); Blood Urine Negative (Negative); Glucose Urine UA Negative (Normal); Ketones Urine Trace (Negative); Leukocyte Esterase Urine Negative (Negative); Nitrate Urine Negative (Negative); Protein Urine Trace (Negative); Urine Appearance Clear (CLEAR); Urine Color Dark Yellow (Yellow); pH Urine 5.5 (5-7)
[2024-06-08 17:41] LABS: Add Urine Microscopic? YES; Bacteria Urine None Seen /hpf; Hyaline Casts Urine 19.83 /lpf; RBC Urine 21-50 /hpf (0-2); Squamous Epithelial Cell Urine 0-5 /hpf (0-5); WBC Urine 0-5 /hpf (0-5)
[2024-06-08 18:00] LABS: Specific Gravity, Urine 1.037 (1.005-1.030); UA Slide Review UA Slide Review Perf
[2024-06-08 18:01] LABS: Add Urine Culture? No
[2024-06-08] MEDS: azithromycin 250 mg Tablet 500 MG PO (18:26)
[2024-06-08 18:31] VITALS: BP 126/78; PULSE 88; RESP 16; O2SAT 95
== END 2024-06-08 18:31 | disposition home or self-care (01) ==
PROVIDERS: Emergency Provider Physician Assistant; PCP Family Medicine
DX: J06.9 Acute upper respiratory infection, unspecified (principal); J45.31 Mild persistent asthma with (acute) exacerbation
CPT/HCPCS: 36415; 71045; 80053; 81001; 84484; 84703; 85025; 85378; 93005; 99285; Q0144